=== PATIENT | female | born 1950 | race Asian ===

== ENCOUNTER 2017-01-18 07:37 | Inpatient (IN) | payer OTHER ==
[~2017-01-18] VITALS: Ht 160 cm; Wt 68.5 kg
[2017-01-18 07:45] VITALS: BP 165/121
[2017-01-18] MEDS ORDERED: IPRATROPIUM 0.02% 0.5 MG/2.5 ML NEBU INH ONE ×2 (07:50→08:30)
[2017-01-18] MEDS ORDERED: ALBUTEROL 0.083% 2.5 MG/3 ML NEBU INH ONE ×2 (07:50→08:30)
[2017-01-18] MEDS ORDERED: methylPREDNISolone SS 125 MG/2 ML VIAL IVP ONE (07:50)
--- NOTE | 2017-01-18 07:50 | NUR ---
Patient being evaluated by physician at bedside.
--- NOTE | 2017-01-18 07:50 | NUR ---
PATIENT TO ER BED 2.
--- NOTE | 2017-01-18 07:50 | NUR ---
PATIENT PRESENTS TO ED WITH severe sob with full accessory muscle use . PT STATES . DENIES N/V/D; SKIN IS pale cool diaphoretic; AAOX4 WITH EVEN AND STEADY GAIT; LUNGS CLEAR BL; HR EVEN AND REGULAR; PT DENIES ANY FEVER, CP,; PATIENT STATES PAIN OF 0/10 AT THIS TIME; VSS; PATIENT POSITIONED FOR COMFORT; HOB ELEVATED; BEDRAILS UP X2; BED DOWN. ER MD MADE AWARE OF PT STATUS.
[2017-01-18] MEDS ORDERED: NACL 0.9% 1,000 ML IV ONE (08:30)
--- NOTE | 2017-01-18 08:50 | NUR ---
pt receiving second breathing treatment---expiratory wheezing and crackles auscultated to mid and lower lobes.
[2017-01-18] MEDS ORDERED: ASPIRIN 81 MG TAB.CHEW PO ONE (09:15)
[2017-01-18] MEDS ORDERED: cefTRIAXone 1,000 MG VIAL ONE (09:19)
[2017-01-18] MEDS ORDERED: NITROGLYCERIN 0.4 MG TAB SL ONE (09:20)
--- NOTE | 2017-01-18 09:30 | NUR ---
pt in semi-carrion's a/o x 4 able to speak in full clear speech. denies cp, admits breathing much easier. skin dry pink warm to touch. pt resting with ou closed, mild accessory muscle use noted to suprasternal and nares--will continue to observe and monitor
--- NOTE | 2017-01-18 10:02 | NUR ---
pt has not been able to void as of yet---1L NS iv wide open--Mally DEGROOT tele aware of urine pending.
--- NOTE | 2017-01-18 10:03 | NUR ---
Pt report given to Mally DEGROOTrn unit manager. Transfer of care at this time.
[2017-01-18] MEDS ORDERED: NACL 0.9% 2,000 ML IV ONE (10:15)
--- NOTE | 2017-01-18 10:25 | NUR ---
RECEIVED PT FROM ED VIA DAVE, PT IS A/OX4, SKIN IS INTACT, IV LT AC 20G PATENT AND INTACT, INFUSING WELL. INITIAL ASSESSMENT DONE, NO S/S OF RESPIRATORY DISTRESS OR DISCOMFORT NOTED, FALL/SAFETY PRECAUTIONS IN PLACE, ORIENTED PT TO ROOM, FAMILY AT BEDSIDE, DISCUSSED PLAN OF CARE WITH PT, PT VERBALIZED UNDERSTANDING, CALL LIGHT WITHIN REACH, WILL CONTINUE TO MONITOR.
[2017-01-18] MEDS ORDERED: ACETAMINOPHEN 325 MG TAB PO PRN (12:05)
[2017-01-18] MEDS ORDERED: NITROGLYCERIN 0.4 MG TAB SL PRN (12:05)
[2017-01-18] MEDS ORDERED: ONDANSETRON 4 MG/2 ML VIAL IVP PRN (12:05)
[2017-01-18] MEDS ORDERED: MORPHINE SULFATE 2 MG/ML SYR IVP PRN (12:05)
[2017-01-18] MEDS ORDERED: LORazepam 1 MG TAB PO PRN (12:05)
[2017-01-18] MEDS ORDERED: HYDROcodone/APAP 5/325 MG 1 TAB TAB PO PRN (12:05)
[2017-01-18] MEDS: ALBUTEROL 0.083% 2.5 MG/3 ML NEBU INH SCH ×2 (12:38→19:25)
[2017-01-18] MEDS: IPRATROPIUM 0.02% 0.5 MG/2.5 ML NEBU INH SCH ×2 (12:38→19:25)
[2017-01-18] MEDS: DEXT 5% /NACL 0.9% 1,000 ML IV SCH ×2 (12:43→22:05)
--- NOTE | 2017-01-18 13:07 | NUR ---
PT IN RESP DISTRESS DESATS ON 50 VENTURI BELOW [address] 12\5 RR12 FIO2 50 ALRMS ARE ON AND FUNCTIONAL PT WEARING F\F MASL SIZE MED GEL UNDER MASK PT IS ANXIOUS FAMILY AT BEDSIDE HHN WAS GIVEN CONT POX IN PLACE Addendum: 01/18/17 at 1349 by Carmen Walter RT 50 % VENTURI ON AT BEDSIDE
[2017-01-18] MEDS ORDERED: ALBUTEROL SULFATE/IPRATROPIU 3 ML SOL IH PRN (13:30)
[2017-01-18] MEDS ORDERED: INFLUENZA VIRUS VACCINE QUAD 0.5 ML SYR IMVAC SCH (13:35)
--- NOTE | 2017-01-18 15:00 | NUR ---
PT ON BIPAP, RT IS AT BEDSIDE.
--- NOTE | 2017-01-18 15:05 | NUR ---
BIPAP CHECK BS CRACKLES VISITOR BEDSIDE ABG DRAWN 1507 FIO2 DECREASED TO 40 SPO2 97
[2017-01-18 16:00] VITALS: BP 117/85
[2017-01-18] MEDS: CARVEDILOL 6.25 MG TAB PO SCH (16:55)
--- NOTE | 2017-01-18 16:55 | NUR ---
BIPAP CHECK BS DIMINISHED\CRACKLES SCATTERED DECREASE FIO2 TO 35 VISITOR PRESENT
--- NOTE | 2017-01-18 16:58 | NUR ---
DUE MEDICATION GIVEN. PT TOLERATED WELL. RT AT BEDSIDE, DAUGHTER IS AT BEDSIDE, NO S/S OF RESPIRATORY DISTRESS OR DISCOMFORT NOTED. CALL LIGHT WITHIN REACH. WILL CONTINUE TO MONITOR.
--- NOTE | 2017-01-18 17:45 | NUR ---
NOTIFIED PT TO HOLD DINNER AT THIS TIME, PT'S DESATS WHEN BIPAP IS REMOVED PER RT. ALL NEEDS MET AT THIS TIME, NO S/S OF RESPIRATORY DISTRESS OR DISCOMFORT NOTED, FAMILY MEMBERS AT BEDSIDE, CALL LIGHT WITHIN REACH WILL CONTINUE TO MONITOR.
[2017-01-18] MEDS ORDERED: HEPARIN PER PHARMACY MC PRN (18:30)
--- NOTE | 2017-01-18 19:05 | NUR ---
ENDORSED PT TO ZANE PHILLIPS. FOR CONTINUITY OF CARE. PT STABLE AT THIS TIME.
[2017-01-18] MEDS: hePARIN / DEXT 5% PREMIX 250 ML IV SCH (19:18)
--- NOTE | 2017-01-18 19:19 | NUR ---
STARTED HEPARIN DRIP AT 11MLS/HR.
--- NOTE | 2017-01-18 19:30 | NUR ---
[facility]. PATIENT RESTING IN BED, FAMILY MEMBER AT BEDSIDE. NO RESPIRATORY DISTRESS, SOB, OR DISCOMFORT. PATIENT IS ON BIPAP AT THIS TIME: 12/5, RR 12, 35% O2. INITIAL ASSESSMENT AND BODY CHECK DONE. PATIENT IS AOX4, SKIN IS INTACT, IV ACCESS TO LEFT AC 20G, INFUSING HEPARIN DRIP AT THIS TIME: 11 MLS/HR. DISCUSSED PLAN OF CARE, MEDICATION REGIMENT, AND PAIN MANAGEMENT WITH PATIENT AND FAMILY MEMBER. PATIENT VERBALIZED UNDERSTANDING. PLACED PATIENT ON SAFETY/FALL PRECAUTIONS. CALL LIGHT LEFT WITHIN REACH, WILL CONTINUE TO MONITOR.
[2017-01-18 20:00] VITALS: BP 110/80
--- NOTE | 2017-01-18 20:32 | NUR ---
PAGED AND SPOKE WITH DEVIN OLIVER OVER THE PHONE. UPDATED OF ELEVATED TROPONIN. ORDERS RECEIVED AT THIS TIME.
--- NOTE | 2017-01-18 20:47 | NUR ---
DR. LUZ AT BEDSIDE SPEAKING WITH PATIENT.
[2017-01-18] MEDS: ZOLPIDEM 5 MG TAB PO PRN (21:02)
[2017-01-18] MEDS: methylPREDNISolone SS 40 MG/ML VIAL IVP SCH (21:02)
[2017-01-18] MEDS: ALUMINUM HYD/MAG/SIMETHICONE 30 ML UDC PO PRN (21:02)
--- NOTE | 2017-01-18 22:21 | NUR ---
PATIENT IN BED, SLEEPING. ON BIPAP, NO CHANGE IN SETTING. NO RESPIRATORY DISTRESS, SOB, OR DISCOMFORT. CALL LIGHT LEFT WITHIN REACH, WILL CONTINUE TO MONITOR.
[2017-01-19] VITALS (7 sets, daily range): BP systolic 0–134; BP diastolic 0–77
[2017-01-19] MEDS: IPRATROPIUM 0.02% 0.5 MG/2.5 ML NEBU INH SCH ×4 (00:02→19:31)
[2017-01-19] MEDS: ALBUTEROL 0.083% 2.5 MG/3 ML NEBU INH SCH ×4 (00:03→19:31)
--- NOTE | 2017-01-19 01:11 | NUR ---
PATIENT ASLEEP. NO RESPIRATORY DISTRESS, SOB, OR DISCOMFORT. CALL LIGHT LEFT WITHIN REACH, WILL CONTINUE TO MONITOR.
[2017-01-19] MEDS: hePARIN / DEXT 5% PREMIX 250 ML IV SCH ×2 (02:18→20:07)
--- NOTE | 2017-01-19 03:04 | NUR ---
PATIENT SLEEPING. NO RESPIRATORY DISTRESS, SOB, OR DISCOMFORT. CALL LIGHT LEFT WITHIN REACH, WILL CONTINUE TO MONITOR.
[2017-01-19] MEDS ORDERED: ASPIRIN 81 MG TAB.CHEW PO SCH (06:00)
--- NOTE | 2017-01-19 06:03 | NUR ---
PATIENT IN BED, ASLEEP. NO RESPIRATORY DISTRESS, SOB, OR DISCOMFORT. NO CHANGE IN BIPAP SETTINGS. CALL LIGHT LEFT WITHIN REACH, WILL CONTINUE TO MONITOR.
--- NOTE | 2017-01-19 06:48 | NUR ---
REC'D PT ON GAYATRI V60 BIPAP SETTINGS 12/5 RR12 FIO2 35% ALARMS ON AND FUNCTIONING PROPERLY, AMBU BAG AT SIDE OF BIPAP AND BIPAP IS PLUGGED INTO RED OUTLET, I\L TX GIVEN WITH ALBUTEROL 2.5MG AND ATROVENT 0.5MG WITH NO ADVERSE REACTION POST TX, B\S ARE COARSE BILATERALLY, PT IS WEARING MED FACE MASK WITH PROTECTA-GEL IN PLACE AND SKIN INTEGRITY IS INTACT, PT IS RESTING WITH NO SIGNS OF DISTRESS NOTED AT THIS TIME
--- NOTE | 2017-01-19 07:23 | NUR ---
REPORT GIVEN TO DAY NURSE, MELODIE ([facility]). PATIENT RESTING IN BED, STABLE. NO RESPIRATORY DISTRESS, SOB, OR DISCOMFORT. PATIENT STILL ON BIPAP. ALL NEEDS ATTENDED TO DURING SHIFT, CALL LIGHT LEFT WITHIN REACH.
--- NOTE | 2017-01-19 07:30 | NUR ---
RECEIVED PT AWAKE IN BED, AAOX4, ABLE TO VERBALIZE NEEDS; NO C/O CP, SOB OR S/S OF ACUTE DISTRESS. SaO2 99% ON BIPAP@35%. ROUTINE/PLAN OF CARE DISCUSSED AND REVIEWED, PT VERBALIZES UNDERSTANDING AND COMPLIANCE. IVF INFUSING WELL TO RIGHT WRIST, HEPARIN DRIP @1000UNITS/HR INFUSING WELL TO LEFT AC; BOTH SITES ASYMPTOMATIC. CXR DONE AT BEDSIDE. SAFETY PRECAUTIONS OBSERVED AND MAINTAINED. ENCOURAGED PT TO CALL FOR ASSISTANCE NEEDED.
[2017-01-19] MEDS: CARVEDILOL 6.25 MG TAB PO SCH ×2 (08:00→17:00)
[2017-01-19] MEDS: DEXT 5% /NACL 0.9% 1,000 ML IV SCH ×2 (08:05→21:41)
--- NOTE | 2017-01-19 08:22 | NUR ---
PT WANTS BIPAP REMOVED TO EAT PLACED 50 % VENTURI SPO2 IS 99 BIPAP ON STAND-BY LANCE DEGROOT PRESENT CONT. POX IN PLACE Addendum: 01/19/17 at 0828 by Carmen Walter RT daughter present
[2017-01-19] MEDS: DOCUSATE SODIUM 100 MG GELCAP PO SCH (09:11)
[2017-01-19] MEDS: ASPIRIN 81 MG TAB.CHEW PO SCH (09:11)
[2017-01-19] MEDS: methylPREDNISolone SS 40 MG/ML VIAL IVP SCH ×2 (09:12→20:10)
--- NOTE | 2017-01-19 09:19 | NUR ---
VS NOTED; HELD COREG, BP104/66; REMAINING ROUTINE MEDS ADMINISTERED ORDERED WITH EDUCATION, DAUGHTER PRESENT. PT TOLERATING VENTURI MASK AT 50%, SaO2 100% AT THIS TIME. WILL CONTINUE TO MONITOR.
--- NOTE | 2017-01-19 09:50 | NUR ---
aPTT 65.0, NO CHANGE IN HEPARIN DRIP PER SLIDING SCALE. CONDITION STABLE.
[2017-01-19] MEDS: LEVOFLOXACIN 750 MG/D5W PREMIX 150 ML IV SCH (11:32)
--- NOTE | 2017-01-19 12:00 | NUR ---
VSS. DENIES ANY PAIN OR DISTRESS AT THIS TIME. DAUGHTER REMAINS AT BEDSIDE.
--- NOTE | 2017-01-19 12:57 | NUR ---
PT PLACED ON 5L OXYMIZER O2 SAT 99% AND ZANE LUCAS NOTIFIED
--- NOTE | 2017-01-19 14:30 | NUR ---
PT SEEN AND EVALUATED BY DR BELTRAN AT BEDSIDE WITH DAUGHTER PRESENT, DISCUSSED PT CONDITION AND PLAN OF CARE. WEIGHT CHECKER AT BEDSIDE TO DRAW aPTT, DR BELTRAN GAVE VERBAL ORDERS TO CANCEL aPTT AND CHANGE TO DAILY, KEEP HEPARIN DRIP INFUSING. DECREASED IVF TO 50ML/HR ORDERED. CONDITION STABLE. WILL CONTINUE TO MONITOR.
--- NOTE | 2017-01-19 19:24 | NUR ---
CONDITION REMAINS STABLE, ENDORSED PLAN OF CARE TO SILK TOP HAT BODY MAKER NURSE.
--- NOTE | 2017-01-19 19:25 | NUR ---
RECD. RESTING IN BED, AWAKE, A/OX4, NO RESPIRATORY DISTRESS NOTED. ON 02 AT 5 LITERS VIA OXYMIZER. 02 SAT - 99%. WHEEZING SOUNDS NOTED ON BILATERAL LUNG AUSCULTATION. HEPARIN DRIP INFUSING AT 10 ML/HR LEFT AC G20, D5NS AT 50 ML/HR INFUSING, RIGHT HAND G22. USES THE BEDSIDE COMMODE. PLAN OF CARE FOR THE SHIFT DISCUSSED. VERBALIZED UNDERSTANDING. DENIES PAIN 0/10. SON AT THE BEDSIDE.
--- NOTE | 2017-01-19 19:26 | NUR ---
Patient's Plan of Care was discussed and reviewed with STUDENT SUCCESS COACH: CELIA CASTELLANOS
[2017-01-19] MEDS ORDERED: guaiFENesin DM 200/20 MG-10 ML 10 ML UDC PO PRN (22:05)
[2017-01-19] MEDS: ALUMINUM HYD/MAG/SIMETHICONE 30 ML UDC PO PRN (22:48)
--- NOTE | 2017-01-19 22:50 | NUR ---
WITH ANXIETY, MEDICATED WITH ATIVAN TABLET ORDERED. COMPLAINT OF COUGHING, MEDICATED WITH ROBITUSSIN DM 10 ML PO.
--- NOTE | 2017-01-19 23:50 | NUR ---
SLEEPING COMFORTABLY IN BED, NO ANXIETY.
[2017-01-20] VITALS: BP 111/65
[2017-01-20] MEDS: IPRATROPIUM 0.02% 0.5 MG/2.5 ML NEBU INH SCH ×4 (01:40→20:10)
[2017-01-20] MEDS: ALBUTEROL 0.083% 2.5 MG/3 ML NEBU INH SCH ×4 (01:46→20:09)
[2017-01-20 04:00] VITALS: BP 104/69
--- NOTE | 2017-01-20 04:00 | NUR ---
DECREASED COUGHING NOTED.
[2017-01-20] MEDS: DEXT 5% /NACL 0.9% 1,000 ML IV SCH (05:36)
--- NOTE | 2017-01-20 07:00 | NUR ---
CONDITION REMAIN STABLE. NO SOB NOTED DURING THE SHIFT. WILL ENDORSED TO AM NURSE FOR CONTINUITY OF CARE.
--- NOTE | 2017-01-20 07:15 | NUR ---
CONDITION REMAIN STABLE. ENDORSED TO ZANE CAPONE FOR CONTINUITY OF CARE.
--- NOTE | 2017-01-20 07:15 | NUR ---
RECEIVED REPORT FROM NIGHT NURSE. PT IS AAOX4. PT IS ON OXYMIZER 5L, IV TO RIGHT HAND 22G D5NS INFUSING WELL. LEFT AC 20G HEP DRIP AT 10ML/HR, SKIN INTACT. INITIAL ASSESSMENT COMPLETED. REVIEWED PLAN OF CARE WITH PT PT VERBALIZED UNDERSTANDING, ORIENTED PT TO ROOM AND ENVIRONMENT. ALL SAFETY/FALL PRECAUTIONS MET. CALL LIGHT WITHIN REACH. WILL CONTINUE TO MONITOR.
[2017-01-20 08:00] VITALS: BP 110/66
[2017-01-20] MEDS: DOCUSATE SODIUM 100 MG GELCAP PO SCH (08:39)
[2017-01-20] MEDS: methylPREDNISolone SS 40 MG/ML VIAL IVP SCH ×2 (08:39→20:37)
[2017-01-20] MEDS: CARVEDILOL 6.25 MG TAB PO SCH ×2 (08:40→16:41)
[2017-01-20] MEDS: ASPIRIN 81 MG TAB.CHEW PO SCH (08:40)
--- NOTE | 2017-01-20 08:40 | NUR ---
DUE MEDICATIONS GIVEN. PT CURRENTLY IN BED HAVING BREAKFAST. PRODUCTIVE COUGH NOTED. NO S/S OF DISTRESS OR DISCOMFORT NOTED. CALL LIGHT WITHIN REACH WILL CONTINUE TO MONITOR
--- NOTE | 2017-01-20 09:09 | NUR ---
PATIENT HAS BEEN SCREENED AND CATEGORIZED MODERATE NUTRITION RISK. PATIENT WILL BE SEEN WITHIN 3-5 DAYS OF ADMISSION. 01/21/17-01/23/[address]
--- NOTE | 2017-01-20 10:15 | NUR ---
CHECKED IN ON PT PT CURRENTLY. SLEEPING. CALL LIGHT WITHIN REACH. WILL CONTINUE TO MONITOR.
[2017-01-20] MEDS: LEVOFLOXACIN 750 MG/D5W PREMIX 150 ML IV SCH (11:13)
--- NOTE | 2017-01-20 11:13 | NUR ---
DUE MEDICATIONS GIVEN. PT CURRENTLY SLEEPING. NO S/S OF RESPIRATORY DISTRESS NOTED. CALL LIGHT WITHIN REACH. WILL CONTINUE TO MONITOR
--- NOTE | 2017-01-20 11:54 | NUR ---
PT CURRENTLY RESTING IN BED, NO S/S OF RESPIRATORY DISTRESS NOTED. SON AT BEDSIDE. CALL LIGHT WITHIN REACH. WILL CONTINUE TO MONITOR
[2017-01-20 12:00] VITALS: BP 107/63
--- NOTE | 2017-01-20 14:56 | NUR ---
FAXED INITIAL REVIEW TO [facility] [phone] PHONE MARLEEN [phone]
--- NOTE | 2017-01-20 15:43 | NUR ---
PT MOVED FROM ROOM. DR. VIERA IN TO SEE PT. PT WAS PUT ON O2 2L VIA NC, RIGHT HAND SALINE LOCK PER MD ORDERS.
--- NOTE | 2017-01-20 15:43 | NUR ---
pt moved to another room and placed on 2lnc rn claudio notified of changes made
[2017-01-20 16:00] VITALS: BP 115/73
--- NOTE | 2017-01-20 16:41 | NUR ---
DUE MEDICATION GIVEN COREG HR 91 . PT TOLERATED WELL. CALL LIGHT WITHIN REACH. WILL CONTINUE TO MONITOR.
--- NOTE | 2017-01-20 16:53 | NUR ---
SPOKE WITH MARLEEN FROM [facility]. HE SAID HIS PHYSICIAN SAID THIS PATIENT WILL MAY NEED AN ANGIOGRAM AND WHEN OUR LEAD PRINCIPAL TECHNICAL ARCHITECT SAYS SHE IS STABLE FOR TRANSFER, THEY WILL LOOK FOR A BED AT THEIR CONTRACTED FACILITY, [facility]. PHONE JAKE [phone].
--- NOTE | 2017-01-20 18:35 | NUR ---
PT CURRENTLY EATING DINNER. NO S/S OF RESPIRATORY DISTRESS NOTED. ALL NEEDS MET. CALL LIGHT WITHIN REACH WILL CONTINUE TO MONITOR
--- NOTE | 2017-01-20 19:25 | NUR ---
RECEIVED REPORT FROM LIBORIO DEGROOT FOR CONTINUITY OF CARE. PATIENT IS A&OX4, DISCUSSED PLAN OF CARE WITH PATIENT, VERBALIZED UNDERSTANDING. SHIFT ASSESSMENT DONE, VS TAKEN, STABLE. NO S/S OF RESPIRATORY DISTRESS NOTED ON 2L NASAL CANNULA O2 SAT 97-100%. PATIENT DENIES PAIN. SKIN IS INTACT. IV TO RT HAND 22 GAUGE PATENT AND FLUSHED. IV TO LT AC 20 GAUGE PATENT AND INFUSING HEPARIN DRIP. EDUCATED PATIENT THAT SPUTUM NEEDS TO BE COLLECTED, VERBALIZED UNDERSTANDING. CALL LIGHT PLACED WITHIN REACH. DAUGHTER AT BEDSIDE. WILL CONTINUE TO MONITOR.
--- NOTE | 2017-01-20 19:25 | NUR ---
ENDORSED PLAN OF CARE TO NIGHT NURSE PT IN STABLE CONDITION.
[2017-01-20 20:00] VITALS: BP 120/77
--- NOTE | 2017-01-20 20:10 | NUR ---
RT IN WITH PATIENT FOR BREATHING TX.
[2017-01-20] MEDS: ALUMINUM HYD/MAG/SIMETHICONE 30 ML UDC PO PRN (20:37)
[2017-01-20] MEDS: ZOLPIDEM 5 MG TAB PO PRN (20:37)
[2017-01-20] MEDS: hePARIN / DEXT 5% PREMIX 250 ML IV SCH (20:39)
--- NOTE | 2017-01-20 20:39 | NUR ---
PT REQUESTED SLEEPING PILL AND MEDICATION FOR GAS, MEDICATED PER MD ORDER, TOLERATED WELL. CHANGED IV DRESSING TO LT AC, SOME OOZING NOTED FROM HEPARIN DRIP. WILL CONTINUE TO MONITOR.
[2017-01-21] VITALS: BP 112/58
--- NOTE | 2017-01-21 | NUR ---
VS TAKEN, STABLE. PATIENT IS NOW SLEEPING. NO S/S OF DISTRESS OR DISCOMFORT NOTED. WILL CONTINUE TO MONITOR.
[2017-01-21] MEDS: IPRATROPIUM 0.02% 0.5 MG/2.5 ML NEBU INH SCH ×4 (01:50→20:40)
[2017-01-21] MEDS: ALBUTEROL 0.083% 2.5 MG/3 ML NEBU INH SCH ×4 (01:50→20:40)
--- NOTE | 2017-01-21 02:03 | NUR ---
PT UP TO USE BEDSIDE COMMODE, VOIDED. NO S/S OF DISTRESS UPON RETURNING TO BED. CALL LIGHT WITHIN REACH.
[2017-01-21 03:53] VITALS: BP 110/65
--- NOTE | 2017-01-21 03:54 | NUR ---
VS TAKEN, STABLE. IV TO LT AC HAS OOZING FROM HEPARIN DRIP DISCUSSED NEW IV SITE WITH PATIENT BUT SHE REFUSED AT THIS TIME. WILL CONTINUE TO MONITOR.
--- NOTE | 2017-01-21 06:03 | NUR ---
PROVIDED CHANGE OF LINENS AND PATIENT PERFORMED AM CARE. WILL CONTINUE TO MONITOR.
--- NOTE | 2017-01-21 07:13 | NUR ---
ENDORSED PATIENT TO DAY RN FOR CONTINUITY OF CARE, PATIENT IS IN STABLE CONDITION.
--- NOTE | 2017-01-21 07:15 | NUR ---
PT IS SLEEPING. NO S/S OF ACUTE CARDIAC/RESPIRATORY DISTRESS OR DISCOMFORT. SAFETY MEASURES IN PLACE, CALL LIGHT WITHIN REACH. WILL CONTINUE PLAN OF CARE AND CONTINUE TO MONITOR.
[2017-01-21 08:00] VITALS: BP 108/68
[2017-01-21] MEDS: CARVEDILOL 6.25 MG TAB PO SCH ×2 (08:35→16:53)
[2017-01-21] MEDS: DOCUSATE SODIUM 100 MG GELCAP PO SCH (08:35)
[2017-01-21] MEDS: methylPREDNISolone SS 40 MG/ML VIAL IVP SCH ×2 (08:35→20:44)
[2017-01-21] MEDS: ASPIRIN 81 MG TAB.CHEW PO SCH (08:35)
--- NOTE | 2017-01-21 10:16 | NUR ---
PT IS WATCHING TV. NO S/S OF ACUTE DISTRESS OR DISCOMFORT. NO CHANGE IN HEPARIN DRIP. CALL LIGHT WITHIN REACH, WILL CONTINUE TO MONITOR.
[2017-01-21] MEDS: LEVOFLOXACIN 750 MG/D5W PREMIX 150 ML IV SCH (10:57)
--- NOTE | 2017-01-21 11:21 | NUR ---
FAXED CONCURRENT REVIEW TO [facility] [phone] PHONE MARLEEN [phone] MARLEEN CASH CALLED ME. I INFORMED HIM I DO NOT HAVE AN ORDER THAT THE PATIENT IS STABLE FOR TRANSFER TO CONTRACTED FACILITY. HE SAID THEY STILL WILL BE LOOKING FOR A FACILITY, AND IF THEY FIND ONE, WILL SEE IF WE CAN GET THE ORDER TO TRANSFER PATIENT.
[2017-01-21 12:00] VITALS: BP 112/72
--- NOTE | 2017-01-21 13:05 | NUR ---
PT AWAKE, DAUGHTER AT BEDSIDE. NO S/S OF ACUTE DISTRESS OR DISCOMFORT. CALL LIGHT WITHIN REACH, WILL CONTINUE TO MONITOR.
[2017-01-21 16:00] VITALS: BP 119/70
--- NOTE | 2017-01-21 16:02 | NUR ---
PT IS RESTING, NO S/S OF ACUTE DISTRESS OR DISCOMFORT. CALL LIGHT WITHIN REACH, WILL CONTINUE TO MONITOR.
--- NOTE | 2017-01-21 19:08 | NUR ---
ENDORSED REPORT TO GRAIN UNLOADER MACHINE RN. PT HAS NO S/S OF ACUTE DISTRESS OR DISCOMFORT. PT IN STABLE CONDITION.
--- NOTE | 2017-01-21 19:10 | NUR ---
RECEIVED PT AWAKE WATCHING A MOVIE ON HER TABLET, VITAL SIGNS STABLE, ON O2 AT 2L/NC, OCCASIONAL COUGH NOTED, INSTRUCTED TO COLLECT SPUTUM FOR TEST, SPECIMEN BOTTLE AT BEDSIDE, DENIES ANY PAIN, NO SOB NOTED, ON HEPARIN DRIP AT 10 ML/H, POC DISCUSSED, SAFETY MEASURES IN PLACE, CALL LIGHT WITHIN REACH.
[2017-01-21 20:00] VITALS: BP 111/66
--- NOTE | 2017-01-21 20:20 | NUR ---
EPHRAIM FROM [facility] CALLED AND SHE SAID THAT TRAILER MECHANIC RN WILL CALL LATER FOR PT'S INFORMATION AND FACE SHEET, AEROPHYSICS ENGINEER MANDA MADE AWARE.
[2017-01-21] MEDS: ZOLPIDEM 5 MG TAB PO PRN (20:45)
[2017-01-21] MEDS: ALUMINUM HYD/MAG/SIMETHICONE 30 ML UDC PO PRN (20:45)
--- NOTE | 2017-01-21 20:50 | NUR ---
PT USE BEDSIDE COMMODE WITH STANDBY ASSIST, VOIDED FREELY, DUE MEDICATION GIVEN, SLEEPING PILL PROVIDED PER REQUEST, ALL NEEDS ATTENDED.
--- NOTE | 2017-01-21 21:33 | NUR ---
MICKEY MECHANICAL SYSTEM TECHNICIAN FROM [facility] CALLED, I TOLD HER THAT MARLEEN FROM [facility] TALKED TO PLUM PACKER LINDA EARLIER AND SAID THAT THEY WILL NOT PAY FOR THE ANGIOGRAM AT [facility] BECAUSE THEY ARE NOT A CONTRACTED FACILITY, THE ONLY CONTRACTED FACILITY WAS [facility], MICKEY WILL CANCEL THE TRANSFER, PLUM PACKER LINDA IS AWARE.
[2017-01-21] MEDS: hePARIN / DEXT 5% PREMIX 250 ML IV SCH (23:11)
--- NOTE | 2017-01-21 23:32 | NUR ---
SLEEPING, EASILY AROUSABLE, VITAL SIGNS STABLE, NO DISTRESS NOTED, NEW BAG OF HEPARIN STARTED WITH SAME RATE OF 10ML/H, CONTINUE TO MONITOR CLOSELY.
[2017-01-22] VITALS: BP 96/58
[2017-01-22] MEDS: ALBUTEROL 0.083% 2.5 MG/3 ML NEBU INH SCH ×3 (00:58→13:08)
[2017-01-22] MEDS: IPRATROPIUM 0.02% 0.5 MG/2.5 ML NEBU INH SCH ×3 (00:58→13:08)
[2017-01-22 04:00] VITALS: BP 117/69
--- NOTE | 2017-01-22 04:00 | NUR ---
PT SLEEPING, EASILY AROUSABLE, VITAL SIGNS STABLE, DENIES ANY PAIN, NO SOB NOTED, MONITORED CLOSELY.
--- NOTE | 2017-01-22 06:30 | NUR ---
PT AWAKE WATCHING MOVIE ON HER TABLET, DENIES ANY PAIN, NO SOB NOTED, HEPARIN DRIP INFUSING WELL AT 10ML/H, MONITORED CLOSELY.
--- NOTE | 2017-01-22 07:15 | NUR ---
AWAKE AND ALERT PATIENT C/O NASAL DRYNESS WITH SUPPLEMENTAL OXYGEN USE POST HHN THERAPY ADDED HUMIDIFIER GAYATRI RESPIRONICS V60 BIPA AT BEDSIDE Addendum: 01/22/17 at 3133 by Yaerd Cruz RT BIPAP
--- NOTE | 2017-01-22 07:25 | NUR ---
PT AWAKE PRESENTLY GETTING BREATHING TX FROM RT ARNOLDO, REPORT GIVEN TO RN DYAN FOR CONTINUITY OF CARE.
--- NOTE | 2017-01-22 07:29 | NUR ---
CONTINUOS PULSE OXIMETER AT BEDSIDE ON AND FUNCTIONING WELL LOW SATURATION SET AT 92%
--- NOTE | 2017-01-22 07:30 | NUR ---
RECEIVED REPORT FROM REPAIRER HAIRSPRING RN. PT RECEIVING BREATHING TX AT THIS TIME. PT HAS NO S/S OF ACUTE CARDIAC/RESPIRATORY DISTRESS. SAFETY MEASURES IN PLACE, CALL LIGHT WITHIN REACH. WILL CONTINUE PLAN OF CARE AND CONTINUE TO MONITOR.
[2017-01-22 07:56] VITALS: BP 123/77
[2017-01-22] MEDS: ASPIRIN 81 MG TAB.CHEW PO SCH (08:43)
[2017-01-22] MEDS: methylPREDNISolone SS 40 MG/ML VIAL IVP SCH (08:43)
[2017-01-22] MEDS: DOCUSATE SODIUM 100 MG GELCAP PO SCH (08:43)
[2017-01-22] MEDS: CARVEDILOL 6.25 MG TAB PO SCH (08:43)
--- NOTE | 2017-01-22 10:00 | NUR ---
PT IS AWAKE, RESTING IN BED. PT TOLERATED AM MEDS WELL. NO S/S OF ACUTE DISTRESS OR DISCOMFORT. CALL LIGHT WITHIN REACH , WILL CONTINUE TO MONITOR.
--- NOTE | 2017-01-22 10:11 | NUR ---
CM NOTE CONCURRENT REVIEW FAXED TO [facility] / FAX# [phone], ATTN: MARLEEN #[phone]
[2017-01-22] MEDS: LEVOFLOXACIN 750 MG/D5W PREMIX 150 ML IV SCH (11:12)
[2017-01-22 12:00] VITALS: BP 108/63
--- NOTE | 2017-01-22 12:03 | NUR ---
CM NOTE PER SHREYA HAWLEY FOR [facility], PATIENT ACCEPTED TO [facility], RM 204B. TO BE PICKED UP BY [facility]; ETA 1400. AUTH# FOR TRANSPORT: #[id number] RN TO RN REPORT: #[phone]; DYAN RN MADE AWARE. TO MD REPORT: DR. ELIAN DIAZ #[phone]; DR. Katelyn BELTRAN MADE AWARE.
--- NOTE | 2017-01-22 13:00 | NUR ---
PT IS AWAKE, RESTING IN BED, DAUGHTER AND SON AT BEDSIDE. DISCUSSED PLAN OF CARE AND AWARE OF TRANSFER. REPORT GIVEN TO WILSON DEGROOT FROM [facility].
--- NOTE | 2017-01-22 13:09 | NUR ---
AWAKE TOLERATED WELL WITHOUT INCIDENT GAYATRI RESPIRONICS V60 BIPAP REMAINS AT BEDSIDE
--- NOTE | 2017-01-22 14:30 | NUR ---
DISCHARGE INSTRUCTIONS PROVIDED, PT AND DAUGHTER VERBALIZED UNDERSTANDING. DISCHARGE PAPERWORK SIGNED, PROVIDED A COPY. ARM BANDS REMOVED, IV REMOVED AND INTACT. PT CHANGED INTO ORANGE GOWNS. NO S/S OF ACUTE DISTRESS OR DISCOMFORT. PT IN STABLE CONDITION. [facility] PRESENT AND TRANSFERRING PT VIA GURNEY.
== END 2017-01-22 14:30 | disposition short-term general hospital (02) | DRG 871 ==
LOC: MED 07:37 → MTU 09:55
PROVIDERS: ADMIT Preventive Medicine Preventive Medicine/Occupational Environmental Medicine; ATTEND Preventive Medicine Preventive Medicine/Occupational Environmental Medicine
PROC: 5A09357 Assistance with Respiratory Ventilation, Less than 24 Consecutive Hours, Continuous Positive Airway Pressure (ICD-10-PCS; principal; 2017-01-18)
DX: A41.9 Sepsis, unspecified organism (principal); I21.4 Non-ST elevation (NSTEMI) myocardial infarction; J18.9 Pneumonia, unspecified organism; J96.01 Acute respiratory failure with hypoxia; I24.9 Acute ischemic heart disease, unspecified; D64.9 Anemia, unspecified; E78.5 Hyperlipidemia, unspecified; E83.52 Hypercalcemia; J45.909 Unspecified asthma, uncomplicated; R73.9 Hyperglycemia, unspecified; I25.119 Atherosclerotic heart disease of native coronary artery with unspecified angina pectoris; R31.9 Hematuria, unspecified; Z85.038 Personal history of other malignant neoplasm of large intestine; Z92.21 Personal history of antineoplastic chemotherapy; Z80.9 Family history of malignant neoplasm, unspecified; Z82.49 Family history of ischemic heart disease and other diseases of the circulatory system